=== PATIENT | female | born 1940 | race Asian ===

== ENCOUNTER 2025-02-22 15:30 | Emergency (ER) | payer OTHER, MEDICAID ==
[~2025-02-22] VITALS: Ht 160 cm; Wt 49.8 kg
--- NOTE | 2025-02-22 15:52 | ED.PDOC ---
History of Present Illness HPI Comments 84-year-old female presents with a chief complaint of neck pain and weakness x midnight this morning. Patient states that her legs "got weak" and she fell down to the ground. Patient denies hitting her head, but is endorsing neck pain. Patient had a CT done earlier today prior to ER arrival and it shows a cervical fractures in C6 and C7. Patient is able to move her neck, but was not placed in a c-collar prior to arrival. Time Seen by MD: 15:40 Reviewed Notes: Nurses Notes, Medications, Allergies Allergies: Coded Allergies: NO KNOWN ALLERGIES (Unverified , 02/22/25) Information Source: Patient, Relative (Child) Mode of Arrival: Ambulatory Severity: Moderate Timing: Hours Duration: Since onset Prehospital treatment: None Past Medical History PAST MEDICAL HISTORY: High Lipids, HTN Past Medical History (Other): Ovarian cysts Surgical History (Other): Cataract surgery CHIEF I DISPATCHER History: No Pertinent CHIEF I DISPATCHER History Family History Family History: Unknown Social History Smoker: Non-Smoker Alcohol: Denies ETOH Use Drugs: Denies Drug Use Lives In: Home Constitutional: reports: weakness; denies: chills, diaphoresis, fatigue, fever, malaise, sweats, others EENTM: denies: blurred vision, double vision, ear bleeding, ear discharge, ear drainage, ear pain, ear ringing, eye pain, eye redness, hearing loss, mouth pain, mouth swelling, nasal discharge, nose bleeding, nose congestion, nose pain, photophobia, tearing, throat pain, throat swelling, voice changes, others Respiratory: denies: cough, hemoptysis, orthopnea, SOB at rest, shortness of breath, SOB with excertion, stridor, wheezing, others Cardiovascular: denies: chest pain, dizzy spells, diaphoresis, Dyspnea on exertion, edema, irregular heart beat, left arm pain, lightheadedness, palpitations, PND, syncope, others Gastrointestinal: denies: abdomen distended, abdominal pain, blood streaked bowels, constipated, diarrhea, dysphagia, difficulty swallowing, hematemesis, melena, nausea, poor appetite, poor fluid intake, rectal bleeding, rectal pain, vomiting, others Genitourinary: denies: abnormal vagina bleeding, burning, dyspareunia, dysuria, flank pain, frequency, hematuria, incontinence, pain, , vagina discharge, urgency, others Neurological: denies: dizziness, fainting, headache, left sided numbness, left sided weakness, numbness, paresthesia, pre-existing deficit, right sided numbness, right sided weakness, seizure, speech problems, tingling, tremors, weakness, others Musculoskeletal: reports: muscle pain, neck pain; denies: back pain, gout, joint pain, joint swelling, muscle stiffness, others Integumetry: denies: bruises, change in color, change in hair/nails, dryness, laceration, lesions, lumps, rash, wounds, others Allergic/Immunocompromised: denies: Difficulty Healing, Frequent Infections, Hi ves, Itching, others Hematologic/Lymphatic: denies: anemia, blood clots, easy bleeding, easy bruising, swollen glands, others Endocrine: denies: excessive hunger, excessive sweating, excessive thirst, excessive urination, flushing, intolerance to cold, intolerance to heat, unexplained weight gain, unexplained weight loss, others Psychiatric: denies: anxiety, bipolar disorder, depression, hopeless, panic disorder, schizophrenia, sleepless, suicidal, others All Other Systems: Reviewed and Negative Physical Exam General Appearance: Moderate Distress HEENT: Normal ENT Inspection, Pharynx Normal, TMs Normal Neck: Limited Range of Motion, Tender Lateral Respiratory: Chest Non-Tender, Lungs Clear, No Accessory Muscle Use, No Respiratory Distress, Normal Breath Sounds Cardiovascular: No Edema, No JVD, No Murmur, No Gallop, Normal Peripheral Pulses, Regular Rate/Rhythm Breast Exam: Deferred Gastrointestinal: No Organomegaly, Non Tender, No Pulsatile Mass, Normal Bowel Sounds, Soft Genitalia: Deferred Pelvic: Deferred Rectal: Deferred Extremities: No calf tenderness, Normal capillary refill, Normal inspection, Normal range of motion, Non-tender, No pedal edema Musculoskeletal : Apperance: Normal Neurologic: Alert, aluminum molder II-XII nml as Tested, No Motor Deficits, Normal Affect, Normal Mood, No Sensory Deficits Cerebellar Function: Normal Reflexes: Normal Skin: Dry, Normal Color, Warm Lymphatic: No Adenopathy Was a procedure done? Was a procedure done?: No EKG EKG : Pulse Rate (adult): 87 Riley: Normal Cardiac Rhythm: NSR Block: None ST: Nonsp Differential Dx Considerations may include: Fracture, strain, contusion, dislocation X-Ray, Labs, Meds, VS Vital Signs Date Time Temp Pulse Resp B/P (MAP) Pulse Ox O2 Delivery O2 Flow Rate FiO2 02/22/25 16:18 91 15 96 Room Air* 0 21 02/22/25 16:18 98.0 90 16 129/69 (89) 95 98.0 02/22/25 15:57 87 02/22/25 15:53 98.2 90 20 157/82 (107) 96 98.2 Lab Test 02/22/25 16:11 02/22/25 15:46 Range/Units White Blood Count 7.3 4.4-10.8 10^3/uL Red Blood Count 3.78 L 4.0-5.20 10^6/uL Hemoglobin 12.6 12.2-16.2 g/dL Hematocrit 38.0 36.0-46.0 % Mean Corpuscular Volume 100.5 H 80.0-100.0 fL Mean Corpuscular Hemoglobin 33.2 H 28.0-32.0 pg Mean Corpuscular Hemoglobin Concent 33.1 32.0-36.0 g/dL Red Cell Distribution Width 12.9 11.8-14.3 % Platelet Count 119 L 140-450 10^3/uL Mean Platelet Volume 8.4 6.9-10.8 fL Neutrophils (%) (Auto) 88.5 H 37.0-80.0 % Lymphocytes (%) (Auto) 4.7 L 10.0-50.0 % Monocytes (%) (Auto) 6.5 0.0-12.0 % Eosinophils (%) (Auto) 0.1 0.0-7.0 % Basophils (%) (Auto) 0.2 0.0-2.0 % Neutrophils # (Auto) 6.4 1.6-8.6 10 ^3/uL Lymphocytes # (Auto) 0.3 L 0.4-5.4 10 ^3/uL Monocytes # (Auto) 0.5 0-1.3 10 ^3/uL Eosinophils # (Auto) 0 0-0.8 10 ^3/uL Basophils # (Auto) 0 0-0.2 10 ^3/uL Nucleated Red Blood Cells 0.0 % Sodium Level 139 136-145 mmol/L Potassium Level 3.9 3.5-5.1 mmol/L Chloride Level 108 H 98-107 mmol/L Carbon Dioxide Level 24 20-31 mmol/L Anion Gap 7 5-15 Blood Urea Nitrogen Pending Creatinine Pending Glomerular Filtration Rate Calc Pending BUN/Creatinine Ratio Pending Serum Glucose Pending Calcium Level 9.6 8.7-10.4 mg/dL POC Glucose 155 H 70-106 mg/dl IV Hep-Lock was established The CBC is within normal limits The chemistry panel is within normal limits The glucose is 155 We did review the imaging studies from [facility] It says that the patient does have a superior endplate burst fracture of C7 with 50% loss of height. The patient also has a C6 bilateral lamina fractures. The right lamina fracture extends to the inferior articular process. C7 right lamina inferior articular process fracture The patient has a mild superior endplate compression fracture of T12 The patient also has a right arm injury but the patient was immediately placed in a C-collar. We contacted [facility] and they did accept the patient to be transferred to their facility. We spoke with the family and they were somewhat concerned about sending the patient down but now they have agreed and the patient will be sent down code 3. Images Reviewed?: Images reviewed and evaluated by me Time of 1ST Reevaluation: 16:10 Reevaluation 1ST: Unchanged Time of 2ND Reevaluation: 16:38 Reevaluation 2ND: Unchanged Patient Education/Counseling: Diagnosis, Treatment, Prognosis Family Education/Counseling: Diagnosis, Treatment, Prognosis Departure 1 Departure Time of Disposition: 16:38 Impression: Primary Impression: C6 cervical fracture Qualified Codes: S12.500A - Unspecified displaced fracture of sixth cervical vertebra, initial encounter for closed fracture Additional Impressions: C7 cervical fracture Qualified Codes: S12.690A - Other displaced fracture of seventh cervical vertebra, initial encounter for closed fracture T2 vertebral fracture Qualified Codes: S22.029A - Unspecified fracture of second thoracic vertebra, initial encounter for closed fracture History of fall Disposition: 51 HOSPICE/MEDICAL FACILITY Condition: Fair Critical Care Note Critical Care Time?: No Stability Stability form required: Yes Stable for transfer: Intended for transfer, To designated facility Heart Score Heart Score: Heart Score Response (Comments) Value History N/A 0 EKG N/A 0 Age N/A 0 Risk Factors N/A 0 Troponin N/A 0 Total 0 I personally scribed for ORQUIDEA METCALF MD ([email or web address]) on 02/22/25 at 15:52. Electronically submitted by Azael Ya ([email or web address]). ORQUIDEA METCALF MD Feb 22, 2025 15:52
--- NOTE | 2025-02-22 16:17 | ECG ---
[facility] Test Date: 2025-02-22 Test Time: 15:57:59 Pat Name: VINCENZO GARCIA Department: ER Room: Gender: F Eye Surgeon: ER : 1940 Requested By: ORQUIDEA METCALF Order Number: [id number] Reading MD: Anthony Louise Measurements Intervals [place] Rate: 87 P: 48 NH: 166 QRS: 43 QRSD: 92 T: 38 QT: 371 QTc: 447 Interpretive Statements Sinus rhythm Electronically Signed On 02-23-2025 14:59:17 PDT by Anthony Louise Please click the below link to view image of tracing.
[2025-02-22 16:18] VITALS: BP 129/69; PULSE 91; RESP 15; TEMP 98; O2SAT 96
[2025-02-22 16:27] LABS: Basophils # (auto) 0 10 ^3/uL (0-0.2); Basophils % (auto) 0.2 % (0.0-2.0); Eosinophils # (auto) 0 10 ^3/uL (0-0.8); Eosinophils % (auto) 0.1 % (0.0-7.0); Hemoglobin 12.6 g/dL (12.2-16.2); Lymphocytes # (auto) 0.3 10 ^3/uL (0.4-5.4); Lymphocytes % (auto) 4.7 % (10.0-50.0); Mean Corpuscular Hemoglobin 33.2 pg (28.0-32.0); Mean Corpuscular Hgb Conc. 33.1 g/dL (32.0-36.0); Mean Corpuscular Volume 100.5 fL (80.0-100.0); Monocytes # (auto) 0.5 10 ^3/uL (0-1.3); Monocytes % (auto) 6.5 % (0.0-12.0); Neutrophils # (auto) 6.4 10 ^3/uL (1.6-8.6); Neutrophils % (auto) 88.5 % (37.0-80.0); Platelet Count (auto) 119 10^3/uL (140-450); Red Blood Cells 3.78 10^6/uL (4.0-5.20); Red Cell Distribution Width 12.9 % (11.8-14.3); White Blood Cell 7.3 10^3/uL (4.4-10.8)
[2025-02-22 16:32] LABS: Potassium 3.9 mmol/L (3.5-5.1); Sodium 139 mmol/L (136-145)
[2025-02-22 16:33] LABS: Anion Gap 7 (5-15); Calcium 9.6 mg/dL (8.7-10.4); Carbon Dioxide 24 mmol/L (20-31)
[2025-02-22 16:36] LABS: Chloride 108 mmol/L (98-107)
[2025-02-22 16:38] LABS: BUN/Creatinine Ratio 18.8 (10.0-20.0); Blood Urea Nitrogen 16 mg/dL (9-23); Glucose 137 mg/dL (74-106)
[2025-02-22 16:42] VITALS: PULSE 87
--- NOTE | 2025-02-22 17:15 | DVH ---
Indication: fall Technique: 2 views of the right humerus Comparison: None FINDINGS/IMPRESSION: No radiographic evidence for acute fracture or dislocation. No significant soft tissue edema. No rad iopaque foreign body. 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 Narrowing of the subacromial interval which can be seen with impingement.
== END 2025-02-22 16:59 | disposition left against medical advice (07) ==
LOC: ER 15:30
DX: S12.690A Other displaced fracture of seventh cervical vertebra, initial encounter for closed fracture (principal); S12.500A Unspecified displaced fracture of sixth cervical vertebra, initial encounter for closed fracture; S22.028A Other fracture of second thoracic vertebra, initial encounter for closed fracture; I10 Essential (primary) hypertension; E78.5 Hyperlipidemia, unspecified; Z98.890 Other specified postprocedural states; W18.39XA Other fall on same level, initial encounter; Y93.89 Activity, other specified; Y92.89 Other specified places as the place of occurrence of the external cause; Y99.8 Other external cause status
CPT/HCPCS: 36415; 73060; 80048; 82947; 82962; 85025; 93005

== ENCOUNTER 2025-05-02 07:32 | Inpatient (IN) | payer OTHER, MEDICAID ==
[~2025-05-02] VITALS: Ht 154.9 cm; Wt 48.0 kg
--- NOTE | 2025-05-02 08:30 | ED.PDOC ---
GI ASSESSMENT HPI Comments 85 y/o F, brought in by daughter, with PMHx of HTN and HLD presents to the ED for CC of nausea/vomiting and multiple episodes of near syncope. Daughter reports, patient has been experiencing symptoms of nausea and vomiting x1day. Patient's daughter relays, further symptoms of dizziness and difficulty ambulating since, commencement of symptoms. Patient was seen, at [facility] and departed home yesterday (05/11/25). Patient is noted to have a C-collar in place d/t status post cervical neck surgery on 03/01/25. Patient denies melena, abdominal pain, chills, sweats, or fever. No other symptoms or modifying factors present at this time. Chief Complaint: Nausea/Vomiting Time Seen by MD: 08:00 Reviewed Notes: Nurses Notes, Medications, Allergies Allergies: Coded Allergies: NO KNOWN ALLERGIES (Unverified , 02/22/25) Information Source: Patient, Relative (Child) Mode of Arrival: Wheelchair Timing: Days Duration: Since onset Prehospital treatment: None Quality: None Vomitus: Watery Stool: Normal Severity: Moderate Recent: None Recent Hx of: None Pain Location: None Modifying Factors: Nothing Associated sign and symptoms: Nausea, Vomiting Past Medical History PAST MEDICAL HISTORY: High Lipids, HTN DEPENDENCY DIRECTOR History: No Pertinent DEPENDENCY DIRECTOR History Family History Family History: Unknown Social History Smoker: Non-Smoker Alcohol: Denies ETOH Use Drugs: Denies Drug Use Lives In: Home Constitutional: denies: chills, diaphoresis, fatigue, fever, malaise, sweats, weakness, others EENTM: denies: blurred vision, double vision, ear bleeding, ear discharge, ear drainage, ear pain, ear ringing, eye pain, eye redness, hearing loss, mouth pain, mouth swelling, nasal discharge, nose bleeding, nose congestion, nose pain, photophobia, tearing, throat pain, throat swelling, voice changes, others Respiratory: denies: cough, hemoptysis, orthopnea, SOB at rest, shortness of breath, SOB with excertion, stridor, wheezing, others Cardiovascular: denies: chest pain, dizzy spells, diaphoresis, Dyspnea on exertion, edema, irregular heart beat, left arm pain, lightheadedness, palpitations, PND, syncope, others Gastrointestinal: reports: nausea, vomiting; denies: abdomen distended, abdominal pain, blood streaked bowels, constipated, diarrhea, dysphagia, difficulty swallowing, hematemesis, melena, poor appetite, poor fluid intake, rectal bleeding, rectal pain, others Genitourinary: denies: abnormal vagina bleeding, burning, dyspareunia, dysuria, flank pain, frequency, hematuria, incontinence, pain, , vagina disc harge, urgency, others Neurological: reports: others (lack of coordination); denies: dizziness, fainting, headache, left sided numbness, left sided weakness, numbness, paresthesia, pre-existing deficit, right sided numbness, right sided weakness, seizure, speech problems, tingling, tremors, weakness Musculoskeletal: denies: back pain, gout, joint pain, joint swelling, muscle pain, muscle stiffness, neck pain, others Integumetry: denies: bruises, change in color, change in hair/nails, dryness, laceration, lesions, lumps, rash, wounds, others Allergic/Immunocompromised: denies: Difficulty Healing, Frequent Infections, Hives, Itching, others Hematologic/Lymphatic: denies: anemia, blood clots, easy bleeding, easy bruising, swollen glands, others Endocrine: denies: excessive hunger, excessive sweating, excessive thirst, excessive urination, flushing, intolerance to cold, intolerance to heat, unexplained weight gain, unexplained weight loss, others Psychiatric: denies: anxiety, bipolar disorder, depression, hopeless, panic disorder, schizophrenia, sleepless, suicidal, others All Other Systems: Reviewed and Negative Physical Exam General Appearance: Normal, Thin, Other (chronically ill apperaing, C-collar in place) HEENT: Normal ENT Inspection, Pharynx Normal Neck: Full Range of Motion, Non-Tender, Normal, Normal Inspection Respiratory: Chest Non-Tender, Lungs Clear, No Accessory Muscle Use, No Respiratory Distress, Normal Breath Sounds Cardiovascular: No Edema, No Murmur, No Gallop, Normal Peripheral Pulses, Regular Rate/Rhythm Breast Exam: Deferred Gastrointestinal: No Organomegaly, Non Tender, No Pulsatile Mass, Normal Bowel Sounds, Soft Genitalia: Deferred Pelvic: Deferred Rectal: Deferred Extremities: No calf tenderness, Normal capillary refill, Normal inspection, Normal range of motion, Non-tender, No pedal edema Musculoskeletal : Apperance: Normal Neurologic: Alert, cathodic protection technician II-XII nml as Tested, No Motor Deficits, Normal Affect, Normal Mood, No Sensory Deficits Cerebellar Function: Normal Reflexes: Normal Skin: Dry, Normal Color, Warm Lymphatic: No Adenopathy Was a procedure done? Was a procedure done?: No GI differential Dx Differential Diagnosis: Gastritis/PUD, Gastroenteritis, Electrolyte Imbalance, Food Poisoning, Bacterial, Viral X-Ray, Labs, Meds, VS Vital Signs Date Time Temp Pulse Resp B/P (MAP) Pulse Ox O2 Delivery O2 Flow Rate FiO2 05/02/25 09:00 87 05/02/25 07:35 97.4 92 15 152/83 97 97.4 Lab Test 05/02/25 09:27 05/02/25 08:15 Range/Units Troponin I High Sensitivity 7 10 </=34 ng/L White Blood Count 8.8 4.4-10.8 10^3/uL Red Blood Count 4.33 4.0-5.20 10^6/uL Hemoglobin 14.4 12.2-16.2 g/dL Hematocrit 42.4 36.0-46.0 % Mean Corpuscular Volume 97.8 80.0-100.0 fL Mean Corpuscular Hemoglobin 33.2 H 28.0-32.0 pg Mean Corpuscular Hemoglobin Concent 33.9 32.0-36.0 g/dL Red Cell Distribution Width 12.6 11.8-14.3 % Platelet Count 177 140-450 10^3/uL Mean Platelet Volume 8.3 6.9-10.8 fL Neutrophils (%) (Auto) 90.0 H 37.0-80.0 % Lymphocytes (%) (Auto) 5.5 L 10.0-50.0 % Monocytes (%) (Auto) 4.5 0.0-12.0 % Eosinophils (%) (Auto) 0.0 0.0-7.0 % Basophils (%) (Auto) 0.0 0.0-2.0 % Neutrophils # (Auto) 7.9 1.6-8.6 10 ^3/uL Lymphocytes # (Auto) 0.5 0.4-5.4 10 ^3/uL Monocytes # (Auto) 0.4 0-1.3 10 ^3/uL Eosinophils # (Auto) 0 0-0.8 10 ^3/uL Basophils # (Auto) 0 0-0.2 10 ^3/uL Nucleated Red Blood Cells 0.0 % Sodium Level 141 136-145 mmol/L Potassium Level 3.2 L 3.5-5.1 mmol/L Chloride Level 103 98-107 mmol/L Carbon Dioxide Level 25 20-31 mmol/L Anion Gap 13 5-15 Blood Urea Nitrogen 10 9-23 mg/dL Creatinine 0.79 0.550-1.02 mg/dL Glomerular Filtration Rate Calc 73 >90 mL/min BUN/Creatinine Ratio 12.7 10.0-20.0 Serum Glucose 121 H 74-106 mg/dL Calcium Level 10.1 8.7-10.4 mg/dL B-Type Natriuretic Peptide 77.31 0-100 pg/mL [place] [address] Ph: [phone] DIAGNOSTIC IMAGING Diagnostic Imaging Report : [id number] Signed PATIENT: VINCENZO GARCIA ACCT: [id number] UNIT: [id number] : 1940 LOC: ER ROOM / BED: / AGE / SEX: 85 / F ADM STATUS: REG ER SERVICE 2 ORDERING PHYSICIAN: BERLIN CORRAL MD PROCEDURE(s): CXRP - CHEST PORTABLE REASON: dizziness ORDER NUMBER(s): [id number], ACCESSION NUMBER(s): [id number] EXAM: XY CHEST PORTABLE Indication: dizziness Technique: Single frontal view of the chest was obtained Comparison: None FINDINGS: Lines and Tubes: None Lungs: No focal consolidation. Pleura: No effusion. No pneumothorax. Cardiomediastinal contours: Unremarkable. Atherosclerotic vascular calcifications of the thoracic aorta are noted. Bones: No acute osseous abnormality. IMPRESSION: No acute cardiopulmonary disease. ATED BY: FORTUNATO SIMON MD DICTATED DATE/TIME: 05/02/25856 SIGNED BY: FORTUNATO SIMON MD SIGNED DATE/TIME: 05/02/25856 CC: [place] [address] Ph: [phone] DIAGNOSTIC IMAGING Diagnostic Imaging Report : [id number] Signed PATIENT: VINCENZO GARCIA ACCT: [id number] UNIT: [id number] : 1940 LOC: ER ROOM / BED: / AGE / SEX: 85 / F ADM STATUS: REG ER SERVICE 2 ORDERING PHYSICIAN: BERLIN CORRAL MD PROCEDURE(s): HWOCT - HEAD WITHOUT CONTRAST REASON: dizziness ORDER NUMBER(s): [id number], ACCESSION NUMBER(s): [id number] EXAM: CT HEAD WITHOUT CONTRAST INDICATION: Dizziness TECHNIQUE: CT of the head without intravenous contrast. Coronal and sagittal reformatted images are submitted. Radiation Dose : 1. Head: CT Dose: CTDI volume is 52.7 mGy. Dose-length product is 1.71 mGy*cm The dose indicators for CT are the volume Computed Tomography (CT) Dose Index (CTDIvol) and the Dose Length Product (DLP), and are measured in units of mGy and mGy-cm, respectively. These indicators are not patient dose, but values generated from the CT scanner acquisition factors. The report includes radiation exposure data for exposures received during this examination. All CT scans at this medical facility are performed using dose modulation techniques as appropriate to a performed exam including the following: Automated exposure control was utilized; adjustment of the MA and/or KV according to patient size; and use of iterative reconstruction technique. COMPARISON: None FINDINGS: There is no evidence of acute intracranial hemorrhage, extra-axial collection, mass effect, midline shift, herniation or hydrocephalus. There are periventricular and subcortical hypodensities, nonspecific, but likely reflecting sequelae of chronic microvascular ischemic changes. The ventricles, sulci and cisterns are age appropriate. The negron-white differentiation is intact. The visualized paranasal sinuses and mastoid air cells are clear. No depressed calvarial fracture. The surrounding soft tissues are unremarkable. IMPRESSION: 1. No evidence of acute intracranial abnormality. ATED BY: SHARA LOJA MD DICTATED DATE/TIME: 05/02/25912 SIGNED BY: SHARA LOJA MD SIGNED DATE/TIME: 05/02/25912 CC: Time of 1ST Reevaluation: 08:30 Reevaluation 1ST: Unchanged Patient Education/Counseling: Diagnosis, Treatment Family Education/Counseling: Diagnosis, Treatment SEPSIS Sepsis Screen Date sepsis recognized/suspect: May 02, 2025 Time Sepsis recognized/suspect: 0739 Recent Procedure: No On Antibiotic Therapy: No Respiratory Rate >20: No Heart Rate >90: No Temp<36 C (96.8 F) or >38.3 C: No SBP <90 or MAP <65 mmHG: No New Acute Mental Status Change: No Is the patient on CPAP, BIPAP,: No Physician Orders Urinalysis (05/02/25 08:03) Chest Portable (05/02/25 08:03) Head Without Contrast (05/02/25 08:03) Electrocardigram (05/02/25 08:03) Troponin-I Hs (05/02/25 11:03) Electrocardigram (05/02/25 09:03) Electrocardigram (05/02/25 11:) Vital Signs Date Time Temp Pulse Resp B/P (MAP) Pulse Ox O2 Delivery O2 Flow Rate FiO2 05/02/25 09:00 87 05/02/25 07:35 97.4 92 15 152/83 97 97.4 Laboratory Tests Test 05/02/25 08:15 White Blood Count 8.8 10^3/uL (4.4-10.8) Departure 1 Departure Time of Disposition: 12:15 (Patient with worsening dizziness and nausea and vomiting. Patient with multiple episodes of near syncope. Will admit for further workup and expert consultation. ) Impression: Primary Impression: Near syncope Additional Impressions: Dizziness Nausea & vomiting Qualified Codes: R11.12 - Projectile vomiting Disposition: ADMITTED INPATIENT Admit to: Med Surg Condition: Serious Critical Care Note Critical Care Time?: No Stability Stability form required: No Heart Score Heart Score: Heart Score Response (Comments) Value History N/A 0 EKG N/A 0 Age N/A 0 Risk Factors N/A 0 Troponin N/A 0 Total 0 I personally scribed for BERLIN CORRAL MD ([email or web address]) on 05/02/25 at 08:30. Electronically submitted by Kortney Skaggs ([email or web address]). I personally scribed for BERLIN CORRAL MD ([email or web address]) on 05/02/25 at 08:40. Electronically submitted by Kortney Skaggs ([email or web address]). I personally scribed for BERLIN CORRAL MD ([email or web address]) on 05/02/25 at 09:23. Electronically submitted by Kortney Skaggs ([email or web address]). I personally scribed for BERLIN CORRAL MD ([facility] on 05/02/25 at 09:24. Electronically submitted by Kortney Skaggs ([email or web address]). I personally scribed for BERLIN CORRAL MD ([facility]) on 05/02/25 at 09:53. Electronically submitted by Kortney Skaggs ([email or web address]). BERLIN CORRAL MD May 02, 2025 08:30
[2025-05-02 08:43] LABS: Hematocrit 42.4 % (36.0-46.0); Hemoglobin 14.4 g/dL (12.2-16.2); Mean Corpuscular Hemoglobin 33.2 pg (28.0-32.0); Mean Corpuscular Volume 97.8 fL (80.0-100.0); Nucleated Red Blood Cells % 0.0 %
[2025-05-02 08:52] LABS: Anion Gap 13 (5-15); Carbon Dioxide 25 mmol/L (20-31); Chloride 103 mmol/L (98-107); Sodium 141 mmol/L (136-145)
[2025-05-02 08:53] LABS: Calcium 10.1 mg/dL (8.7-10.4)
[2025-05-02 08:58] LABS: BUN/Creatinine Ratio 12.7 (10.0-20.0); Blood Urea Nitrogen 10 mg/dL (9-23)
--- NOTE | 2025-05-02 08:59 | DVH ---
EXAM: XY CHEST PORTABLE Indication: dizziness Technique: Single frontal view of the chest was obtained Comparison: None FINDINGS: Lines and Tubes: None Lungs: No focal consolidation. Pleura: No effusion. No pneumothorax. Cardiomediastinal contours: Unremarkable. Atherosclerotic vascular calcifications of the thoracic ao rta are noted. Bones: No acute osseous abnormality. IMPRESSION: No acute cardiopulmonary disease.
[2025-05-02 09:01] LABS: Glucose 121 mg/dL (74-106); Potassium 3.2 mmol/L (3.5-5.1)
--- NOTE | 2025-05-02 09:16 | DVH ---
EXAM: CT HEAD WITHOUT CONTRAST INDICATION: Dizziness TECHNIQUE: CT of the head without intravenous contrast. Coronal and sagittal reformatted images are s ubmitted. Radiation Dose : 1. Head: CT Dose: CTDI volume is 52.7 mGy. Dose-length product is 1.71 mGy*cm The dose indicators for CT are the volume Computed Tomography (CT) Dose Index (CTDIvol) and the Dose Length Product (DLP), and are measured in units of mGy and mGy-cm, respectively. These indicators are not patient dose, but values generated from the CT scanner acquisition factors. The report includes radiation exposure data for exposures received during this examination. All CT scans at this medical facility are performed using dose modulation techniques as appropriate to a performed exam including the following: Automated exposure control was utilized; adjustment of the MA and/or KV according to patient size; and use of iterative reconstruction technique. COMPARISON: None FINDINGS: There is no evidence of acute intracranial hemorrhage, extra-axial collection, mass effect, midline s hift, herniation or hydrocephalus. There are periventricular and subcortical hypodensities, nonspecific, but likely reflecting sequelae of chronic microvascular ischemic changes. The ventricles, sulci and cisterns are age appropriate. The negron-white differentiation is intact. The visualized paranasal sinuses and mastoid air cells are clear. No depressed calvarial fracture. The surrounding soft tissues are unremarkable. IMPRESSION: 1. No evidence of acute intracranial abnormality.
[2025-05-02] MEDS: ONDANSETRON HCL 4 MG/2 ML VIAL IV ONE (11:42)
[2025-05-02 12:48] LABS: Urine Protein, UAD 2+ (Negative)
[2025-05-02] MEDS ORDERED: ONDANSETRON HCL 4 MG/2 ML VIAL IV PRN (14:15)
[2025-05-02] MEDS ORDERED: ACETAMINOPHEN 325 MG TAB PO PRN (14:15)
[2025-05-02] MEDS ORDERED: SODIUM CHLORIDE 0.9% 1,000 ML IV SCH (14:15)
[2025-05-02] MEDS ORDERED: NITROGLYCERIN 0.4 MG SL TAB SL PRN (14:15)
[2025-05-02] MEDS ORDERED: MORPHINE SULFATE INJ 2 MG/ml SYRG IV PRN (14:15)
--- NOTE | 2025-05-02 14:15 | DVHHP2 ---
History of Present Illness Reason for Visit: Dizziness with a near syncopal episode History of Present Illness 85 y/o F, brought in by daughter, with PMHx of HTN and HLD presents to the ED for CC of nausea/vomiting and multiple episodes of near syncope. Daughter reports, patient has been experiencing symptoms of nausea and vomiting x1day. Patient's daughter relays, further symptoms of dizziness and difficulty ambulating since, commencement of symptoms. Patient was seen, at [facility] and departed home yesterday (05/11/25). Patient is noted to have a C-collar in place d/t status post cervical neck surgery on 03/01/25. Patient denies melena, abdominal pain, chills, sweats, or fever. No other symptoms or modifying factors present at this time. Past Medical History High Lipids, HTN Review of Systems Review of Systems No chest pain or shortness for breath no fevers chills or sweats. Other review of systems reviewed normal Allergies: Coded Allergies: NO KNOWN ALLERGIES (Unverified , 02/22/25) Exam Vital Signs Vital Signs Date Time Temp Pulse Resp B/P (MAP) Pulse Ox O2 Delivery O2 Flow Rate FiO2 05/02/25 09:00 87 05/02/25 07:35 97.4 15 152/83 97 97.4 Exam Comfortable in the chair. HEENT neck supple no JVD. Heart regular rate and rhythm S1-S2. Lungs fair air movement without rales wheezes. Abdomen soft nontender positive bowel sounds. Extremities no edema. Neurologic no focal deficits Labs/Xrays Labs Test 05/02/25 12:53 05/02/25 12:38 05/02/25 08:15 Range/Units Troponin I High Sensitivity 10 </=34 ng/L Urine Color Light-yellow Yellow Urine Clarity Turbid H Clear Urine pH 7.0 5.0-9.0 Urine Specific [place] 1.015 1.001-1.035 Urine Protein 2+ H Negative Urine Ketones 1+ H Negative Urine Blood Negative Negative /uL Urine Nitrite Negative Negative Urine Bilirubin Negative Negative Urine Urobilinogen Normal Negative mg/dL Urine Leukocyte Esterase Negative Negative /uL Urine RBC 1 0 - 4 /hpf Urine Microscopic WBC 3 0-5 /HPF Urine Squamous Epithelial Cells Few <5 /hpf Urine Bacteria None seen None Seen /hpf Urine Mucus Few None Seen Urine Glucose Normal Normal mg/dL White Blood Count 8.8 4.4-10.8 10^3/uL Red Blood Count 4.33 4.0-5.20 10^6/uL Hemoglobin 14.4 12.2-16.2 g/dL Hematocrit 42.4 36.0-46.0 % Mean Corpuscular Volume 97.8 80.0-100.0 fL Mean Corpuscular Hemoglobin 33.2 H 28.0-32.0 pg Mean Corpuscular Hemoglobin Concent 33.9 32.0-36.0 g/dL Red Cell Distribution Width 12.6 11.8-14.3 % Platelet Count 177 140-450 10^3/uL Mean Platelet Volume 8.3 6.9-10.8 fL Neutrophils (%) (Auto) 90.0 H 37.0-80.0 % Lymphocytes (%) (Auto) 5.5 L 10.0-50.0 % Monocytes (%) (Auto) 4.5 0.0-12.0 % Eosinophils (%) (Auto) 0.0 0.0-7.0 % Basophils (%) (Auto) 0.0 0.0-2.0 % Neutrophils # (Auto) 7.9 1.6-8.6 10 ^3/uL Lymphocytes # (Auto) 0.5 0.4-5.4 10 ^3/uL Monocytes # (Auto) 0.4 0-1.3 10 ^3/uL Eosinophils # (Auto) 0 0-0.8 10 ^3/uL Basophils # (Auto) 0 0-0.2 10 ^3/uL Nucleated Red Blood Cells 0.0 % Sodium Level 141 136-145 mmol/L Potassium Level 3.2 L 3.5-5.1 mmol/L Chloride Level 103 98-107 mmol/L Carbon Dioxide Level 25 20-31 mmol/L Anion Gap 13 5-15 Blood Urea Nitrogen 10 9-23 mg/dL Creatinine 0.79 0.550-1.02 mg/dL Glomerular Filtration Rate Calc 73 >90 mL/min BUN/Creatinine Ratio 12.7 10.0-20.0 Serum Glucose 121 H 74-106 mg/dL Calcium Level 10.1 8.7-10.4 mg/dL B-Type Natriuretic Peptide 77.31 0-100 pg/mL SEPSIS Sepsis Screen Date sepsis recognized/suspect: May 02, 2025 Time Sepsis recognized/suspect: 0739 Recent Procedure: No On Antibiotic Therapy: No Respiratory Rate >20: No Heart Rate >90: No Temp<36 C (96.8 F) or >38.3 C: No SBP <90 or MAP <65 mmHG: No New Acute Mental Status Change: No Is the patient on CPAP, BIPAP,: No Physician Orders Chest Portable (05/02/25 08:03) Head Without Contrast (05/02/25 08:03) Electrocardigram (05/02/25 08:03) Electrocardigram (05/02/25 09:03) Electrocardigram (05/02/25 11:03) Admit (05/02/25 14:11) Cardiac Diet-2gna,Lofat,Lochol (05/02/25 Dinner) * Neurology Consult (05/02/25 14:11) Brain Head Wo Contrast (05/02/25 14:11) Angio Head/Neck (05/02/25 14:11) Pt Request For Service (05/02/25 14:11) Orthostatic Vital Signs (05/02/25 14:11) Orthostatic Vital Signs (05/02/25 ) Nitroglycerin Sublingual (Ntrostat Subli (05/02/25 14:15) Morphine Sulfate Injection (05/02/25 14:15) Stat Ekg For Chest Pain (05/02/25 14:11) Notify Md Of Changes From Base (05/02/25 14:11) Grinding And Spraying Supervisor For 24 Hours (05/02/25 14:11) Emergency Dysrhythmia Protocol (05/02/25 14:11) Rhythm Strips Once Every Shift (05/02/25 14:11) Oxygen By Nasal Cannula (05/02/25 14:11) NS (05/02/25 14:15) Ondansetron Hcl (Zofran) (05/02/25 14:15) Acetaminophen Tablet (Tylenol Tablet) (05/02/25 14:15) Vital Signs Date Time Temp Pulse Resp B/P (MAP) Pulse Ox O2 Delivery O2 Flow Rate FiO2 05/02/25 09:00 87 05/02/25 07:35 97.4 92 15 152/83 97 97.4 Laboratory Tests Test 05/02/25 08:15 White Blood Count 8.8 10^3/uL (4.4-10.8) Assessment/Plan Assessment/Plan We will admit her overnight. I will order MRI of the brain CT angiogram of the head and neck given her history of C-spine surgeries with a neck collar to see if she has any autonomic dysfunction to explain her symptoms. We will have Neurology consultation. Otherwise continue rest of supportive care and treatment. Follow clinical management per clinical course. Discussed with the ER physician Plan discussed with: Other My Orders Orders - JUDITH MEDRANO MD Procedure Category Date Status Time Admit ADMIT 05/02/25 Transmitted 14:11 Cardiac DIET 05/02/25 Transmitted Diet-2gna,Lofat,Lochol Dinner * Neurology Consult CONS 05/02/25 Transmitted 14:11 Brain Head Wo Contrast MRI 05/02/25 Transmitted 14:11 Angio Head/Neck CT 05/02/25 Transmitted 14:11 Pt Request For Service PT 05/02/25 Transmitted 14:11 Orthostatic Vital ORDERS 05/02/25 Transmitted Signs 14:11 Orthostatic Vital ED NURSING 05/02/25 Transmitted Signs Nitroglycerin PHA 05/02/25 Transmitted Sublingual (Ntrostat 14:15 Morphine Sulfate PHA 05/02/25 Transmitted Injection 14:15 Stat Ekg For Chest ZOË 05/02/25 Transmitted Pain 14:11 Notify Md Of Changes [facility] 05/02/25 Transmitted From Base 14:11 Grinding And Spraying Supervisor For [facility] 05/02/25 Transmitted 24 Hours 14:11 Emergency Dysrhythmia [facility] 05/02/25 Transmitted Protocol 14:11 Rhythm Strips Once [facility] 05/02/25 Transmitted Every Shift 14:11 Oxygen By Nasal RT 05/02/25 Transmitted Cannula 14:11 NS PHA 05/02/25 Transmitted 14:15 Ondansetron Hcl PHA 05/02/25 Transmitted (Zofran) 14:15 Acetaminophen Tablet PHA 05/02/25 Transmitted (Tylenol Tablet) 14:15 Problem List: (1) Near syncope (2) Nausea & vomiting (3) Dizziness JUDITH MEDRANO MD May 02, 2025 14:15
[2025-05-02] MEDS: IOHEXOL 350 MG/ML 100ML IJ ONE (14:22)
[2025-05-02] MEDS ORDERED: SODIUM CHLORIDE 0.9% 1,000 ML IV ONE (15:00)
[2025-05-02 15:15] VITALS: BP 142/98; PULSE 90; RESP 16; TEMP 97.8; O2SAT 95
--- NOTE | 2025-05-02 15:16 | DVH ---
EXAM: CT ANGIO HEAD/NECK HISTORY: dizziness COMPARISON: CT HEAD WITHOUT CONTRAST on DOS: 05/02/25 TECHNIQUE: High-resolution helical CT images of the head and neck were performed with 100 mL Omnipaqu e 350 IV contrast utilizing CTA protocol. Sagittal and coronal reformatted images and 3-D MIP reconst ructions were obtained. This CT exam was performed using one or more of the following dose reduction techniques: Automated exposure control, adjustment of the mA and/or kV according to patient size, or use of iterative reconstruction technique. Radiation Dose: CT Dose: CTDI volume is 22.41 mGy. Dose-length product is 790.62 mGy*cm FINDINGS: [place] of [place]: No evidence of aneurysmal dilatation or significant stenosis about the ci rcle of [place]. The bilateral MCAs, ACAs, and sterile instrument technician are widely patent. There is origin of the le ft AUTOMATIC I THREADING MACHINE FEEDER. The left [place] A1 segment is asymmetrically larger than the right. The cavernous and petrous IC As are patent. Right carotid system: No significant stenosis of the CCA, ICA, or ECA origin. Left carotid system: No significant stenosis of the CCA, ICA, or ECA origin. Vertebrobasilar: The bilateral vertebral arteries and basilar artery are patent. The left vertebral a rtery is dominant. Miscellaneous: There are Postoperative changes of Left cataract extraction surgery. There is mild muc osal thickening of the bilateral maxillary sinuses. There are small mucous retention cysts in the ri ght sphenoid sinus. The patient is completely edentulous. 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 There are postoperative changes of C6-T1 anterior fusion with plate and screw fixation; C7 corpectomy. There are chronic appearing fractures the right C6 lamina and inferior articular process and C7 spinous process. There are chronic appearing superior and inferior endplate compression fract ures of T2. IMPRESSION: 1. No aneurysmal dilatation or significant stenosis about the standing [place] of [place]. 2. origin of the left AUTOMATIC I THREADING MACHINE FEEDER and asymmetric prominence of the left [place] A1 segment, both of which a re developmental vascular variants. 3. No significant stenosis of the bilateral cervical carotid arteries or vertebral arteries. 4. Mild paranasal sinus disease. 5. Chronic appearing fractures of C6, C7, and T2, and postoperative changes of the cervicothoracic ju nction as detailed above.
[2025-05-02] MEDS: SODIUM CHLORIDE 0.9% 1,000 ML IV ONE (15:19)
[2025-05-02] MEDS: POTASSIUM CHL 20 Meq TABLET PO ONE (15:24)
--- NOTE | 2025-05-02 17:01 | DVH ---
PROCEDURE: MRI BRAIN HEAD WO CONTRAST INDICATION: dizziness EXAM DATE: 05/02/2025 04:03 PM COMPARISON: CT ANGIO HEAD/NECK on DOS: 05/02/25, CT HEAD WITHOUT CONTRAST on DOS: 05/02/25 TECHNIQUE: MRI of the brain without intravenous contrast. FINDINGS: Diffusion weighted images of the brain demonstrate no evidence of acute infarction. There is no evidence of acute intracranial hemorrhage, extra-axial collection, mass effect, midline s hift, herniation or hydrocephalus. The ventricles, sulci and cisterns appear age appropriate. Moderate to advanced changes of chronic microvascular ischemic disease. There are no signal abnormalities on the susceptibility weighted sequences. The major vascular flow voids are present. The visualized paranasal sinuses and mastoid air cells are clear. The surrounding soft tissues and o sseous structures are unremarkable. IMPRESSION: 1. No evidence of acute infarction, intracranial hemorrhage, mass effect or hydrocephalus. Moderate t o advanced changes of chronic microvascular ischemic disease. HS:Y
[2025-05-02] MEDS ORDERED: METOPROLOL TARTRATE 25 MG TAB PO SCH (22:00)
--- NOTE | 2025-05-02 22:52 | DVHINCON2 ---
Date of service: May 02, [address] Carmen Reason for Consultation Dizziness and near syncope History of Present Illness He left AMA 05/02/25 85 y/o F, brought in by daughter, with PMHx of HTN and HLD presents to the ED for CC of nausea/vomiting and multiple episodes of near syncope. Daughter reports, patient has been experiencing symptoms of nausea and vomiting x1day. Patient's daughter relays, further symptoms of dizziness and difficulty ambulating since, commencement of symptoms. Patient was seen, at [facility] and departed home yesterday (05/11/25). Patient is noted to have a C-collar in place d/t status post cervical neck surgery on 03/01/25. Patient denies melena, abdominal pain, chills, sweats, or fever. No other symptoms or modifying factors present at this time. Chief Complaint: Nausea/Vomiting UDS, 05/02/2025, WBC: Three, urine leukocyte esterase: Negative CBC, 05/02/2025: Unremarkable MBP 05/02/2025: Unremarkable CT head, 05/02/2025: No evidence of acute intracranial abnormality. CTA head, neck, 05/02/2025: 1. No aneurysmal dilatation or significant stenosis about the lower [place] of [place]. 2. origin of the left BUILDING OPERATOR and asymmetric prominence of the left [place] A1 segment, both of which are developmental vascular variants. 3. No significant stenosis of the bilateral cervical carotid arteries or vertebral arteries. 4. Mild paranasal sinus disease. 5. Chronic appearing fractures of C6, C7, and T2, and postoperative changes of the cervicothoracic junction as detailed above MRI head, 05/02/2025: No evidence of acute infarction, intracranial hemorrhage, mass effect or hydrocephalus. Moderate to advanced changes of chronic microvascular ischemic disease Hypertension, dyslipidemia No Pertinent DOG BEAUTICIAN History Unknown Smoker: Non-Smoker Alcohol: Denies ETOH Use Drugs: Denies Drug Use Lives In: Home Allergies: Coded Allergies: NO KNOWN ALLERGIES (Unverified , 02/22/25) Current Medications Current Medications Medications (Trade) Dose Ordered Sig/Theo Route PRN Reason Start Time Stop Time Status Last Admin Nitroglycerin (Ntrostat Sublingual) 0.4 mg Q5MINP PRN SL FOR CHEST PAIN 05/02/25 14:15 Morphine Sulfate 2 mg Q30M PRN IV FOR CHEST PAIN 05/02/25 14:15 Sodium Chloride 1,000 ml @ 60 mls/hr [id number] IV 05/02/25 14:15 Ondansetron HCl (Zofran) 4 mg Q4HPRN PRN IV NAUSEA / VOMITING 05/02/25 14:15 Acetaminophen (Tylenol Tablet) 650 mg Q4HP PRN PO MODERATE PAIN (4-6 PAIN SCALE) 05/02/25 14:15 Metoprolol Tartrate (Lopressor Tablet) 12.5 mg BID PO 05/02/25 22:00 Vital Signs Vital Signs Date Time Temp Pulse Resp B/P (MAP) Pulse Ox O2 Delivery O2 Flow Rate FiO2 05/02/25 15:15 90 16 95 Room Air* 0 21 05/02/25 15:15 97.8 142/98 (113) 97.8 Labs/Diagnostic Data Labs Test 05/02/25 12:53 05/02/25 12:38 05/02/25 08:15 Range/Units Troponin I High Sensitivity 10 </=34 ng/L Urine Color Light-yellow Yellow Urine Clarity Turbid H Clear Urine pH 7.0 5.0-9.0 Urine Specific [place] 1.015 1.001-1.035 Urine Protein 2+ H Negative Urine Ketones 1+ H Negative Urine Blood Negative Negative /uL Urine Nitrite Negative Negative Urine Bilirubin Negative Negative Urine Urobilinogen Normal Negative mg/dL Urine Leukocyte Esterase Negative Negative /uL Urine RBC 1 0 - 4 /hpf Urine Microscopic WBC 3 0-5 /HPF Urine Squamous Epithelial Cells Few <5 /hpf Urine Bacteria None seen None Seen /hpf Urine Mucus Few None Seen Urine Glucose Normal Normal mg/dL White Blood Count 8.8 4.4-10.8 10^3/uL Red Blood Count 4.33 4.0-5.20 10^6/uL Hemoglobin 14.4 12.2-16.2 g/dL Hematocrit 42.4 36.0-46.0 % Mean Corpuscular Volume 97.8 80.0-100.0 fL Mean Corpuscular Hemoglobin 33.2 H 28.0-32.0 pg Mean Corpuscular Hemoglobin Concent 33.9 32.0-36.0 g/dL Red Cell Distribution Width 12.6 11.8-14.3 % Platelet Count 177 140-450 10^3/uL Mean Platelet Volume 8.3 6.9-10.8 fL Neutrophils (%) (Auto) 90.0 H 37.0-80.0 % Lymphocytes (%) (Auto) 5.5 L 10.0-50.0 % Monocytes (%) (Auto) 4.5 0.0-12.0 % Eosinophils (%) (Auto) 0.0 0.0-7.0 % Basophils (%) (Auto) 0.0 0.0-2.0 % Neutrophils # (Auto) 7.9 1.6-8.6 10 ^3/uL Lymphocytes # (Auto) 0.5 0.4-5.4 10 ^3/uL Monocytes # (Auto) 0.4 0-1.3 10 ^3/uL Eosinophils # (Auto) 0 0-0.8 10 ^3/uL Basophils # (Auto) 0 0-0.2 10 ^3/uL Nucleated Red Blood Cells 0.0 % Sodium Level 141 136-145 mmol/L Potassium Level 3.2 L 3.5-5.1 mmol/L Chloride Level 103 98-107 mmol/L Carbon Dioxide Level 25 20-31 mmol/L Anion Gap 13 5-15 Blood Urea Nitrogen 10 9-23 mg/dL Creatinine 0.79 0.550-1.02 mg/dL Glomerular Filtration Rate Calc 73 >90 mL/min BUN/Creatinine Ratio 12.7 10.0-20.0 Serum Glucose 121 H 74-106 mg/dL Calcium Level 10.1 8.7-10.4 mg/dL B-Type Natriuretic Peptide 77.31 0-100 pg/mL Plan discussed with: Other ALEXY GUNN MD May 02, 2025 22:52
--- NOTE | 2025-05-04 09:39 | ECG ---
[facility] Test Date: 2025-05-02 Test Time: 09:00:49 Pat Name: VINCENZO GARCIA Department: [facility] ED Room: [address] [place] [address] Gender: F Senior Sql Dba: lily : 1940 Requested By: BERLIN CORRAL Order Number: [id number] Reading MD: Measurements Intervals [place] Rate: 87 P: 53 WA: 150 QRS: 34 QRSD: 104 T: 52 QT: 387 QTc: 466 Interpretive Statements Sinus rhythm Abnormal inferior Q waves Nonspecific T abnormalities, lateral leads Please click the below link to view image of tracing.
== END 2025-05-02 17:41 | disposition left against medical advice (07) | DRG 312 ==
LOC: ER 07:32 → OVERFLOW 14:11
PROVIDERS: ADMIT Hospitalist; ATTEND Hospitalist
DX: R55 Syncope and collapse (principal); I10 Essential (primary) hypertension; E78.5 Hyperlipidemia, unspecified; Z53.29 Procedure and treatment not carried out because of patient's decision for other reasons
CPT/HCPCS: 36415; 70450; 70496; 70498; 70551; 71045; 80048; 81001; 83880; 84484; 85025; 93005; 96360; G0378